=== PATIENT | female | born 1980 | race Caucasian/White ===

== ENCOUNTER 2016-07-29 12:18 | Emergency (ER) | payer MEDICAID, OTHER ==
[~2016-07-29] VITALS: Ht 160 cm; Wt 72.0 kg
[2016-07-29 12:20] VITALS: BP 176/107; PULSE 124; RESP 16; TEMP 97.9; O2SAT 100
[2016-07-29] MEDS ORDERED: SODIUM CHLOR 0.9% 1000 ML INJ 1,000 ML IV SCH (12:43)
[2016-07-29] MEDS ORDERED: AMLO5TAB2 PO (12:45)
[2016-07-29] MEDS ORDERED: SODIUM CHLORIDE 0.9% FLUSH 10 ML FLUSH IV FLUSH PRN (12:45)
[2016-07-29] MEDS ORDERED: METO50TA PO (12:45)
--- NOTE | 2016-07-29 12:46 | PD ---
HPI Chief Complaint: Abdominal Pain Time Seen by Provider: 12:46 Travel History International Travel<30 days: No Contact w/Intl Traveler<30days: No Traveled to known affect area: No History of Present Illness HPI 36-year-old female with a history of iron deficiency anemia presents to the emergency department for evaluation of lower abdominal pain, fatigue, vaginal discharge and dysuria. The patient states that 5 days ago she began to have lower abdominal and pelvic pain. States that she was seen at [facility] 3 days ago and was diagnosed with a urinary tract infection and prescribed Cipro. States she has been taking this medication without improvement of symptoms. States that yesterday she developed abnormal vaginal discharge. States that she has some mild lower back pain as well. States she has had some intermittent nausea and vomiting, last vomited yesterday. Denies fever, chills, diarrhea, constipation, hematuria, chest pain, shortness of breath, cough or cold symptoms. No other complaints. PFSH Past Medical History Hx Anticoagulant Therapy: No Anemia: Yes Cardiovascular Problems: Yes (HTN) Chemotherapy: No Cerebrovascular Accident: Yes (POSSIBLE TIA) Diabetes: No Hypertension: Yes Respiratory: No Influenza Vaccination: No ?: Not LMP: 07/21/16 : 3 Para: 1 Past Surgical History Abdominal Surgery: Yes (gastric bypass) Oral Surgery: Yes Social History Alcohol Use: No Tobacco Use: Yes Substance Use: No Allergies-Medications (Allergen,Severity, Reaction): Coded Allergies: Codeine (Verified Allergy, Intermediate, N/V, 07/29/16) Reported Meds & Prescriptions Reported Meds & Active Scripts Active Reported Adderall (Amphetamine-Dextroamphetamine) 20 Mg Tab 20 Mg PO BID Avoid late evening doses. Space doses at least 4 to 6 hours if more than once/day dosing. Klonopin (Clonazepam) 1 Mg Tab 1 Mg PO BID Metoprolol Tartrate 50 Mg Tab 50 Mg PO BID Amlodipine (Amlodipine Besylate) 5 Mg Tab 5 Mg PO DAILY Review of Systems Except as stated in HPI: all other systems reviewed are Neg Physical Exam Narrative GENERAL: Well-nourished and well-developed pleasant female patient in no acute distress who is nontoxic appearing. SKIN: Warm and dry. HEAD: Normocephalic and atraumatic. EYES: No injection, drainage, or hyphema noted. PERRLA. EOMI. ENT: No nasal drainage noted. Oropharynx is clear. NECK: Supple and the trachea is midline. CARDIOVASCULAR: Regular rate and rhythm. RESPIRATORY: Breath sounds are equal bilaterally with no accessory muscle use, wheezing, rhonchi, or crackles. GASTROINTESTINAL: Suprapubic tenderness to palpation. Negative McBurney's point. Negative Weiss's sign. No rebound tenderness or guarding. Abdomen is soft and nondistended. GENITOURINARY: Normal external genitalia without lesions or erythema. Vaginal vault with small amount of white discharge. Cervical os was closed without drainage. No cervical motion tenderness. She does have tenderness overlying the uterus. Uterus is nonenlarged. Bilateral adnexa nontender without masses. MUSCULOSKELETAL: No obvious deformities, swelling, cyanosis, or ecchymosis is present throughout the upper and lower extremities. Patient has full range of motion without any signs of neurovascular compromise. BACK: Nontender without any obvious deformities, bony point tenderness, or crepitus noted throughout the thoracic and lumbar vertebrae. NEUROLOGICAL: Awake, alert, and oriented. Normal speech and gait. Cranial nerves are grossly intact. Data Data Last Documented VS Vital Signs Date Time Temp Pulse Resp B/P Pulse Ox O2 Delivery O2 Flow Rate FiO2 07/29/16 12:53 Room Air 07/29/16 12:20 97.9 124 16 176/107 100 Orders Complete Blood Count With Diff (07/29/16 12:43) Comprehensive Metabolic Panel (07/29/16 12:43) Lipase (07/29/16 12:43) Urinalysis - C+S If Indicated (07/29/16 12:43) Iv Access Insert/Monitor (07/29/16 12:43) Ecg Monitoring (07/29/16 12:43) Oximetry (07/29/16 12:43) Sodium Chlor 0.9% 1000 Ml Inj (Ns 1000 M (07/29/16 12:43) Sodium Chloride 0.9% Flush (Ns Flush) (07/29/16 12:45) Ed Urine Pregnancytest Poc (07/29/16 12:43) Ketorolac Inj (Toradol Inj) (07/29/16 13:00) Morphine Inj (Morphine Inj) (07/29/16 13:30) Ondansetron Inj (Zofran Inj) (07/29/16 13:30) Us Pelvis Comp Supervisor Drying/Non-Preg (07/29/16 ) Gc And Chlamydia Pcr (07/29/16 13:58) Wet Prep Profile (07/29/16 13:58) Oxycodone-Acetamin 5-325 Mg (Percocet (07/29/16 15:45) Labs Laboratory Tests Test 07/29/16 07/29/16 12:50 14:02 White Blood Count 6.4 TH/MM3 Red Blood Count 4.18 MIL/MM3 Hemoglobin 9.5 GM/DL Hematocrit 29.8 % Mean Corpuscular Volume 71.3 FL Mean Corpuscular Hemoglobin 22.8 PG Mean Corpuscular Hemoglobin 32.0 % Concent Red Cell Distribution Width 17.5 % Platelet Count 393 TH/MM3 Mean Platelet Volume 8.3 FL Neutrophils (%) (Auto) 50.9 % Lymphocytes (%) (Auto) 37.2 % Monocytes (%) (Auto) 6.7 % Eosinophils (%) (Auto) 4.2 % Basophils (%) (Auto) 1.0 % Neutrophils # (Auto) 3.2 TH/MM3 Lymphocytes # (Auto) 2.4 TH/MM3 Monocytes # (Auto) 0.4 TH/MM3 Eosinophils # (Auto) 0.3 TH/MM3 Basophils # (Auto) 0.1 TH/MM3 CBC Comment DIFF FINAL Differential Comment Urine Color DARK-YELLOW Urine Turbidity CLEAR Urine pH 5.5 Urine Specific Constantia 1.020 Urine Protein TRACE mg/dL Urine Glucose (UA) NEG mg/dL Urine Ketones NEG mg/dL Urine Occult Blood NEG Urine Nitrite NEG Urine Bilirubin NEG Urine Urobilinogen LESS THAN 2.0 MG/DL Urine Leukocyte Esterase NEG Urine RBC 4 /hpf Urine WBC 3 /hpf Urine Hyaline Casts 3 /lpf Urine Mucus FEW /lpf Microscopic Urinalysis Comment CULT NOT INDICATED Sodium Level 140 MEQ/L Potassium Level 4.1 MEQ/L Chloride Level 106 MEQ/L Carbon Dioxide Level 26.7 MEQ/L Anion Gap 7 MEQ/L Blood Urea Nitrogen 21 MG/DL Creatinine 0.77 MG/DL Estimat Glomerular Filtration 85 ML/MIN Rate Random Glucose 73 MG/DL Calcium Level 8.6 MG/DL Total Bilirubin 0.4 MG/DL Aspartate Amino Transf 19 U/L (AST/SGOT) Alanine Aminotransferase 27 U/L (ALT/SGPT) Alkaline Phosphatase 56 U/L Total Protein 7.6 GM/DL Albumin 3.8 GM/DL Lipase 196 U/L Clue Cells (Wet Prep) NONE SEEN Vaginal Trichomonas (Wet Prep) NONE SEEN Vaginal Yeast (Wet Prep) NONE SEEN MDM Medical Decision Making Medical Screen Exam Complete: Yes Emergency Medical Condition: Yes Differential Diagnosis UTI versus urethritis versus cystitis versus PID versus ovarian cyst Narrative Course 36-year-old female presents to the emergency department for evaluation of lower abdominal pain with dysuria, nausea and vomiting. Patient is afebrile, vital signs are stable. She is initially tachycardic. She has suprapubic tenderness but overall abdominal examination is benign. She was seen at [facility] 3 days ago for the same complaint and was diagnosed with urinary tract infection and placed on Cipro. Her symptoms have persisted and she is now reporting vaginal discharge as well. IV access is obtained, labs were drawn and sent. Patient is placed on cardiac telemetry and pulse oximetry monitoring. Patient is administered IV Toradol, fluids, morphine and Zofran. I reviewed the records from her visit 3 days ago which shows that she did have a urinary tract infection and anemia but otherwise labs were unremarkable. She had a wet prep that was unremarkable and GC chlamydia that was negative. CBC shows anemia with a hemoglobin of 9.5, hematocrit 29.8. Patient has a history of iron deficiency anemia. CMP shows elevated BUN of 21, otherwise unremarkable. Urinalysis shows 4 red blood cells, few mucus otherwise unremarkable. Wet prep is negative. Gonorrhea and chlamydia is pending. Pelvic ultrasound shows unremarkable uterus with multiple small bilateral ovarian follicular cysts largest measuring 1.5 cm on the left and 1 cm on the right. The patient has required multiple doses of pain medication earlier in the emergency department. I discussed all findings with the patient and family. There is no sign of infection. She had a negative gonorrhea and chlamydia done at [facility] 3 days ago per her records. She has ovarian cysts on ultrasound may be causing her pain. She'll be discharged with a short prescription for pain medication and Zofran. She is advised to follow-up as an outpatient with her PCP or cheese wrapper. Patient verbalizes understanding and agreement with treatment plan. I discussed the case with my attending physician Dr. Erickson who is aware of the patients history, physical examination findings, and treatment plan. Diagnosis Primary Impression: Ovarian cyst Additional Impression: Pain, pelvic, female Referrals: Psychologist Engineering Primary Care Physician Patient Instructions: General Instructions, Ovarian Cyst (ED), Pelvic Pain (ED) Additional Instructions: Take medications as prescribed with food and a full glass of water. Do not take Percocet with alcohol or while driving. Follow-up with your Primary Care Physician. Return to the ED for any acute worsening of symptoms. Med/Other Pt SpecificInfo: Prescription(s) given Scripts Ondansetron (Zofran)4 Mg Tab4 Mg PO Q6HR PRN (NAUSEA OR VOMITING) #10 TAB Ref 0 Prov:Palmer Erickson MD 07/29/16 Oxycodone-Acetaminophen (Percocet)5-325 mg Tab1 Tab PO Q6H PRN (PAIN GREATER THAN 6) #12 TAB Ref 0 Prov:Palmer Erickson MD 07/29/16 Disposition: 01 DISCHARGE HOME Condition: Stable Heather Pedersen Jul 29, 2016 12:46
[2016-07-29] MEDS ORDERED: ADDE20 PO (12:47)
[2016-07-29] MEDS ORDERED: CLON1 PO (12:47)
[2016-07-29] MEDS ORDERED: KETOROLAC TROMETHAMINE 30 MG/ML (IVP) VIAL IV PUSH ONE (13:00)
[2016-07-29 13:11] LABS: WHITE BLOOD COUNT 6.4 TH/MM3 (4.0-11.0)
[2016-07-29 13:12] LABS: AUTOMATED NEUTROPHIL # 3.2 TH/MM3 (1.8-7.7); BASOPHIL # 0.1 TH/MM3 (0-0.2); EOSINOPHIL # 0.3 TH/MM3 (0-0.4); EOSINOPHIL % 4.2 % (0.0-4.0); HEMATOCRIT 29.8 % (35.0-46.0); HEMO FLAGS DIFF FINAL; LYMPH % 37.2 % (9.0-44.0); LYMPHOCYTE # 2.4 TH/MM3 (1.0-4.8); MEAN CELL VOLUME 71.3 FL (80.0-100.0); MEAN CORPUSCULAR HEMOGLOBIN 22.8 PG (27.0-34.0); MONO % 6.7 % (0.0-8.0); NEUT % 50.9 % (16.0-70.0); PLATELET COUNT 393 TH/MM3 (150-450); RED BLOOD COUNT 4.18 MIL/MM3 (4.00-5.30); RED CELL DISTRIBUTION WIDTH 17.5 % (11.6-17.2)
[2016-07-29 13:16] LABS: BLOOD, URINE NEG (NEG); COMMENT (UR) CULT NOT INDICATED; CULTURE IF INDICATED CULT NOT INDICATED; GLUCOSE,URINE NEG (NEG); HYALINE CAST, URINE 3 /lpf (RARE); KETONE, URINE NEG (NEG); MUCUS URINE FEW /lpf (OCC); NITRITE,URINE NEG (NEG); PH, URINE 5.5 (5.0-8.5); URINE COLOR DARK-YELLOW (YELLW/STRAW)
[2016-07-29] MEDS ORDERED: ONDANSETRON HCL 4 MG/2 ML VIAL IV PUSH ONE (13:30)
[2016-07-29] MEDS ORDERED: MORPHINE SULFATE 4 MG/ML INJ IV PUSH ONE (13:30)
[2016-07-29 13:41] LABS: ANION GAP 7 MEQ/L (5-15); AST (GOT) 19 U/L (15-37); BICARBONATE 26.7 MEQ/L (21.0-32.0); BLOOD UREA NITROGEN 21 MG/DL (7-18); CHLORIDE 106 MEQ/L (98-107); GLOMERULAR FILTRATION RATE 85 ML/MIN (>89); POTASSIUM 4.1 MEQ/L (3.5-5.1); SODIUM (NA) 140 MEQ/L (136-145)
[2016-07-29 13:44] LABS: ALKALINE PHOSPHATASE 56 U/L (45-117); ALT (GPT) 27 U/L (10-53); TOTAL BILIRUBIN ADULT 0.4 MG/DL (0.2-1.0)
--- NOTE | 2016-07-29 15:38 | RADRPT ---
EXAM DATE/TIME: 07/29/2016 14:37 [facility] COMPARISON: No previous studies available for comparison. INDICATIONS : Pelvic pain. MEDICAL HISTORY : Hypertension. Possible transient ischemic attack. Pelvic pain. SURGICAL HISTORY : Gastric bypass. Oral surgery. ENCOUNTER: Initial ACUITY: 1 week PAIN SCORE: 7/10 LOCATION: Bilateral pelvis MEASUREMENTS: UTERUS: 8.5 x 5.4 x 3.4 cm ENDOMETRIAL STRIPE: 7 mm RIGHT OVARY: 3.1 x 1.6 x 1.6 cm LEFT OVARY: 3.8 x 2.2 x 1.8 cm FINDINGS: UTERUS: The myometrium has homogeneous echotexture without mass. RIGHT OVARY: Ovary contains no mass or significant cystic lesion. LEFT OVARY: Ovary contains no mass or significant cystic lesion. MISCELLANEOUS: No free fluid. CONCLUSION: 1. Uterus unremarkable. Multiple small bilateral ovarian follicular cysts. Largest measures about 1.5 cm on the left and 1 cm on the right. Reggie Hong MD on July 29, 2016 at 15:35 Board Certified Radiologist. This report was verified electronically.
[2016-07-29] MEDS ORDERED: oxyCODONE/ACETAMINOPHEN 5 MG/325 MG TAB PO ONE (15:45)
[2016-07-29] MEDS ORDERED: ZOFR4TAB PO (15:50)
[2016-07-29] MEDS ORDERED: PERC5TAB12 PO (15:50)
[2016-07-29 16:16] VITALS: BP 181/101; TEMP 98.3
[2016-07-29 16:21] LABS: CHLAMYDIA PCR NOT DETECTED (NOT DETECT); NEISSERIA PCR NOT DETECTED (NOT DETECT)
== END 2016-07-29 16:27 | disposition home or self-care (01) ==
LOC: NEPE 12:18
DX: N83.02 Follicular cyst of left ovary (principal); N83.01 Follicular cyst of right ovary; R10.2 Pelvic and perineal pain; D64.9 Anemia, unspecified; R30.0 Dysuria; R11.2 Nausea with vomiting, unspecified; N89.8 Other specified noninflammatory disorders of vagina; M54.5 Low back pain; I10 Essential (primary) hypertension; Z72.0 Tobacco use; Z86.2 Personal history of diseases of the blood and blood-forming organs and certain disorders involving the immune mechanism; Z86.79 Personal history of other diseases of the circulatory system
CPT/HCPCS: 76856; 80053; 81001; 83690; 84703; 85025; 87210; 87491; 87591; 96361; 96374; 96375; 99285; J1885; J2270; J2405; J7030

== ENCOUNTER 2016-11-28 15:44 | Emergency (ER) | payer OTHER ==
[~2016-11-28] VITALS: Ht 160 cm; Wt 77.0 kg
[~2016-11-28 15:44] MED LIST: ADDE20 PO; AMLO5TAB2 PO; CLON1 PO; METO50TA PO; PERC5TAB12 PO; ZOFR4TAB PO
[2016-11-28 15:46] VITALS: BP 184/108; PULSE 86; RESP 15; TEMP 98.2; O2SAT 98
--- NOTE | 2016-11-28 20:40 | PD ---
HPI Chief Complaint: Manufacturing Planner Problem/Complaint Time Seen by Provider: 20:30 Travel History International Travel<30 days: No Contact w/Intl Traveler<30days: No Traveled to known affect area: No History of Present Illness HPI This is a 36-year-old female who presents for evaluation of lower abdominal pain. Symptoms started today at 1 PM after she urinated. She describes it as a pressure in the pelvic region which is constant. No obvious aggravating or relieving factors. She took some Azo which did not help. She denies dysuria, increased urinary frequency or hesitancy, nausea or vomiting, vaginal bleeding or discharge. She reports that she has a history of ovarian cysts and she is concerned that one may have ruptured. No other complaints at this time. PFSH Past Medical History Hx Anticoagulant Therapy: No Anemia: Yes Cardiovascular Problems: Yes (HTN) Chemotherapy: No Cerebrovascular Accident: Yes (POSSIBLE TIA) Diabetes: No Diminished Hearing: No Hypertension: Yes Respiratory: No Tetanus Vaccination: Unknown ?: Not LMP: week ago : 3 Para: 1 Past Surgical History Abdominal Surgery: Yes (gastric bypass) Oral Surgery: Yes Social History Alcohol Use: No Tobacco Use: Yes (socially) Substance Use: No Allergies-Medications (Allergen,Severity, Reaction): Coded Allergies: codeine (Unverified Allergy, Intermediate, N/V, 09/20/16) Reported Meds & Prescriptions Reported Meds & Active Scripts Active Flagyl (Metronidazole) 500 Mg Tab 500 Mg PO BID 7 Days Pyridium (Phenazopyridine HCl) 100 Mg Tab 100 Mg PO Q8H PRN 3 Days Macrobid (Nitrofurantoin Monohydrate Macrocrystals) 100 Mg Capsule 100 Mg PO BID 7 Days Zofran (Ondansetron HCl) 4 Mg Tab 4 Mg PO Q6HR PRN Percocet (Oxycodone-Acetaminophen) 5-325 mg Tab 1 Tab PO Q6H PRN Reported Adderall (Amphetamine-Dextroamphetamine) 20 Mg Tab 20 Mg PO BID Avoid late evening doses. Space doses at least 4 to 6 hours if more than once/day dosing. Klonopin (Clonazepam) 1 Mg Tab 1 Mg PO BID Metoprolol Tartrate 50 Mg Tab 50 Mg PO BID Amlodipine (Amlodipine Besylate) 5 Mg Tab 5 Mg PO DAILY Review of Systems Except as stated in HPI: all other systems reviewed are Neg Physical Exam Narrative Examined in the presence of a female nurse GENERAL: Well-nourished female in no acute distress SKIN: Warm and dry. HEAD: Atraumatic. Normocephalic. EYES: Pupils equal and round. No scleral icterus. No injection or drainage. ENT: No nasal bleeding or discharge. Mucous membranes pink and moist. NECK: Trachea midline. No JVD. CARDIOVASCULAR: Regular rate and rhythm. No murmur appreciated. RESPIRATORY: No accessory muscle use. Clear to auscultation. Breath sounds equal bilaterally. GASTROINTESTINAL: Abdomen soft, focal mild suprapubic tenderness without guarding. Pelvic examination reveals a small amount of yellow discharge in the vaginal canal, no cervical motion tenderness, mild right adnexal tenderness. No palpable masses. MUSCULOSKELETAL: No obvious deformities. No clubbing. No cyanosis. No edema. NEUROLOGICAL: Awake and alert. No obvious cranial nerve deficits. Motor grossly within normal limits. Normal speech. PSYCHIATRIC: Appropriate mood and affect; insight and judgment normal. Data Data Last Documented VS Vital Signs Date Time Temp Pulse Resp B/P (MAP) Pulse Ox O2 Delivery O2 Flow Rate FiO2 11/28/16 15:46 98.2 86 15 184/108 (133) 98 Orders Orders Urinalysis - C+S If Indicated (11/28/16 20:30) Ed Urine Pregnancytest Poc (11/28/16 20:30) Gc And Chlamydia Pcr (11/28/16 20:38) Wet Prep Profile (11/28/16 20:38) Us Pelvis Comp W Doppler (11/28/16 20:40) Acetamin-Codeine 300-30 Mg (Tylenol-Code (11/28/16 21:00) Ondansetron Odt (Zofran Odt) (11/28/16 21:00) Oxycodone-Acetamin 5-325 Mg (Percocet (11/28/16 21:45) Urine Culture (11/28/16 21:00) Nitrofurantoin Monohyd Macrocr (Macrobid (11/28/16 22:00) Metronidazole (Flagyl) (11/28/16 22:15) Labs Laboratory Tests Test 11/28/16 21:00 11/28/16 21:30 Urine Color DARK-ORANGE Urine Turbidity CLOUDY Urine pH 6.0 Urine Specific [place] 1.032 Urine Protein 100 mg/dL Urine Glucose (UA) NEG mg/dL Urine Ketones NEG mg/dL Urine Occult Blood MOD Urine Nitrite POS Urine Bilirubin LARGE Urine Urobilinogen 8.0 MG/DL Urine Leukocyte Esterase NEG Urine RBC /hpf Urine WBC /hpf Urine WBC Clumps FEW Urine Bacteria OCC /hpf Urine Mucus FEW /lpf Microscopic Urinalysis Comment CULTURE INDICATED Clue Cells (Wet Prep) PRESENT Vaginal Trichomonas (Wet Prep) NONE SEEN Vaginal Yeast (Wet Prep) NONE SEEN MDM Medical Decision Making Medical Screen Exam Complete: Yes Emergency Medical Condition: Yes Medical Record Reviewed: Yes Interpretation(s) CONCLUSION: Unremarkable sonographic appearance of the pelvis Differential Diagnosis Cystitis, ovarian cyst, ovarian torsion, PID, , ectopic , appendicitis Narrative Course 36-year-old female who has been expressing pelvic pain for several hours. On examination she has mild suprapubic tenderness to palpation, mild right adnexal tenderness on pelvic examination. No cervical motion tenderness. Small amount of yellow discharge in the vaginal canal. The patient reports allergies to Toradol as well as codeine however she has taken oxycodone in the past with no difficulty. She will be given a dose of Percocet and Zofran. Pelvic ultrasound reveals no acute abnormalities. The urinalysis reveals positive nitrites, innumerable WBCs, moderate blood, 100 protein, culture is pending. Empirically the patient is being treated with Macrobid and Pyridium pending culture results. Her wet prep is also positive for clue cells and she will be started on Flagyl. She is stable for discharge. Diagnosis Primary Impression: Urinary tract infection Qualified Codes: N30.01 - Acute cystitis with hematuria Additional Impression: Bacterial vaginosis Additional Instructions: Medication as prescribed. Stay well hydrated well-nourished. Follow up close with primary care physician. Return for any emergent medical conditions. Med/Other Pt SpecificInfo: Prescription(s) given Scripts Metronidazole (Flagyl) 500 Mg Tab 500 MG PO BID for Infection for 7 Days, #14 TAB 0 Refills Prov: Pipo Knight MD 11/28/16 Phenazopyridine (Pyridium) 100 Mg Tab 100 MG PO Q8H Y for DYSURIA for 3 Days, #9 TAB 0 Refills Prov: Pipo Knight MD 11/28/16 Nitrofurantoin Monohydrate Macrocrystals (Macrobid) 100 Mg Capsule 100 MG PO BID for Infection for 7 Days, #14 CAP 0 Refills Prov: Pipo Knight MD 11/28/16 Disposition: 01 DISCHARGE HOME Condition: Stable Gama Elliott Nov 28, 2016 20:40
[2016-11-28] MEDS ORDERED: ONDANSETRON ODT 4 MG TAB PO ONE (21:00)
[2016-11-28] MEDS ORDERED: ACETAMINOPHEN/CODEINE 300 MG/30 MG TAB PO ONE (21:00)
[2016-11-28 21:37] LABS: BACTERIA, URINE OCC /hpf; BILIRUBIN, URINE LARGE (NEG); BLOOD, URINE MOD (NEG); GLUCOSE,URINE NEG (NEG); KETONE, URINE NEG (NEG); MUCUS URINE FEW /lpf (OCC); NITRITE,URINE POS (NEG); URINE LEUKOCYTE ESTERASE NEG (NEG); WHITE BLOOD CELL CLUMPS FEW
[2016-11-28 21:44] LABS: URINE COLOR DARK-ORANGE (YELLW/STRAW)
[2016-11-28] MEDS ORDERED: oxyCODONE/ACETAMINOPHEN 5 MG/325 MG TAB PO ONE (21:45)
--- NOTE | 2016-11-28 21:45 | RADRPT ---
EXAM DATE/TIME: 11/28/2016 21:08 [facility] COMPARISON: No previous studies available for comparison. INDICATIONS : Pelvic pain. MEDICAL HISTORY : Hypertension. Possible transient ischemic attack. Pelvic pain. SURGICAL HISTORY : Gastric bypass. Oral surgery. ENCOUNTER: Subsequent ACUITY: 1 day PAIN SCORE: 7/10 LOCATION: Bilateral pelvis MEASUREMENTS: UTERUS: 8.2 x 4.6 x 4.6 cm ENDOMETRIAL STRIPE: 3 mm RIGHT OVARY: 3.5 x 3.1 x 2.6 cm LEFT OVARY: 2.5 x 1.5 x 1.8 cm FINDINGS: UTERUS: The myometrium has homogeneous echotexture without mass. RIGHT OVARY: Ovary contains no mass or significant cystic lesion.Intact blood flow LEFT OVARY: Ovary contains no mass or significant cystic lesion. Intact blood flow MISCELLANEOUS: No free fluid. CONCLUSION: Unremarkable sonographic appearance of the pelvis Otoniel Vallecillo MD on November 28, 2016 at 21:42 Board Certified Radiologist. This report was verified electronically.
[2016-11-28] MEDS ORDERED: MACR100C2 PO (21:58)
[2016-11-28] MEDS ORDERED: PHEN0.4T PO (21:58)
[2016-11-28] MEDS ORDERED: NITROFURANTOIN MONOHYD MACROCR 100 MG CAP PO ONE (22:00)
[2016-11-28] MEDS ORDERED: METR-1 PO (22:10)
[2016-11-28] MEDS ORDERED: metroNIDAZOLE 500 MG TAB PO ONE (22:15)
== END 2016-11-28 22:43 | disposition home or self-care (01) ==
LOC: NEPB 15:44 → NED 15:44 → NEPB 22:43
DX: N30.01 Acute cystitis with hematuria (principal); B96.20 Unspecified Escherichia coli [E. coli] as the cause of diseases classified elsewhere; N76.0 Acute vaginitis
CPT/HCPCS: 76856; 81001; 84703; 87077; 87086; 87186; 87210; 87491; 87591; 93975

== ENCOUNTER 2017-04-26 09:57 | Emergency (ER) | payer OTHER ==
[~2017-04-26] VITALS: Ht 160 cm; Wt 95.5 kg
[~2017-04-26 09:57] MED LIST changes: +MACR100C2 PO; +METR-1 PO; +PHEN0.4T PO
[2017-04-26 11:08] VITALS: BP 173/94; PULSE 72; RESP 20; TEMP 97.6; O2SAT 98
[2017-04-26] MEDS ORDERED: OXYC1TAB63 PO (11:22)
[2017-04-26 14:36] LABS: AUTOMATED NEUTROPHIL # 3.3 TH/MM3 (1.8-7.7); BASOPHIL % 0.2 % (0.0-2.0); EOSINOPHIL % 0.8 % (0.0-4.0); HEMATOCRIT 41.1 % (35.0-46.0); HEMOGLOBIN 13.8 GM/DL (11.6-15.3); LYMPH % 33.3 % (9.0-44.0); LYMPHOCYTE # 1.8 TH/MM3 (1.0-4.8); MEAN CELL VOLUME 91.5 FL (80.0-100.0); MEAN CORPUSCULAR HEMOGLOBIN 30.7 PG (27.0-34.0); MEAN CORPUSCULAR HGB CONC 33.5 % (32.0-36.0); MONO % 5.2 % (0.0-8.0); MONOCYTE # 0.3 TH/MM3 (0-0.9); NEUT % 60.5 % (16.0-70.0); PLATELET COUNT 233 TH/MM3 (150-450); RED BLOOD COUNT 4.49 MIL/MM3 (4.00-5.30); RED CELL DISTRIBUTION WIDTH 15.8 % (11.6-17.2); WHITE BLOOD COUNT 5.5 TH/MM3 (4.0-11.0)
[2017-04-26 14:45] LABS: BACTERIA, URINE MOD /hpf; BILIRUBIN, URINE NEG (NEG); BLOOD, URINE NEG (NEG); GLUCOSE,URINE NEG (NEG); KETONE, URINE NEG (NEG); MUCUS URINE MANY /lpf (OCC); NITRITE,URINE NEG (NEG); SQUAMOUS EPITHELIAL CELL URINE 16 /hpf (0-5); URINE COLOR YELLOW (YELLW/STRAW); URINE LEUKOCYTE ESTERASE SMALL (NEG)
[2017-04-26 14:55] LABS: ALBUMIN 3.6 GM/DL (3.4-5.0); ALT (GPT) 27 U/L (10-53); AST (GOT) 21 U/L (15-37); BICARBONATE 27.9 MEQ/L (21.0-32.0); BLOOD UREA NITROGEN 10 MG/DL (7-18); CALCIUM 8.4 MG/DL (8.5-10.1); CHLORIDE 110 MEQ/L (98-107); CREATININE 0.67 MG/DL (0.50-1.00); GLOMERULAR FILTRATION RATE 100 ML/MIN (>89); GLUCOSE,RANDOM 80 MG/DL (74-106); SODIUM (NA) 144 MEQ/L (136-145)
[2017-04-26 15:05] LABS: ACETAMINOPHEN LESS THAN 2.0 MCG/ML (10.0-30.0); ALKALINE PHOSPHATASE 47 U/L (45-117); TOTAL BILIRUBIN ADULT 0.6 MG/DL (0.2-1.0); TOTAL PROTEIN 6.9 GM/DL (6.4-8.2)
--- NOTE | 2017-04-26 15:38 | PD ---
History of Present Illness Chief Complaint: Adjustment disorder Time Seen by Provider: 15:20 Travel History International Travel<30 Days: No Contact w/Intl Traveler<30days: No Known affected area: No Legal Status Legal Status: Voluntary History of Present Illness: This is a 36-year-old single, white female who presents voluntarily to the ED stating that she had a disagreement with her mother. Patient denies any history of mental illness and she has never been seen at this facility and not capacity. The medical nurse practitioner came over to screen patient and reported that the patient became irate when she was denied IV pain medication. Patient stating to the medical provider that she wants to leave AMA. I saw this patient briefly in her room with viviana Morataya present. When asked why she was here she responded "I told my mom I hated her and she called the ( expletive) hand laster they brought me here". Patient denies a psych history although , she does state that she was diagnosed with PTSD several years ago and reports that she gets Klonopin from her primary care physician. She states that she has had a pretty Jason attempt but is unable to tell me when. The patient is alert and oriented 4. Her speech is clear, and organized. Her mood is angry and her affect is angry. Patient becomes extremely agitated stating that she "has to receive pain medication through her IV". Patient denies having any suicidal ideation, homicidal ideation, visual or auditory hallucinations. I can elicit no delusional material. Her anger and irritation at not getting the medication she desires seems more in line with the cluster B personality trait. Throughout our interview her manner toward staff was demeaning. She states that she would like to leave AMA. She additionally states, "I want to go to the hospital is going to treat me". Patient seems much more concerned about pain management appears to be med seeking. Patient signed out AMA. PFSH Past Medical History Hx Anticoagulant Therapy: No Anemia: Yes Cardiovascular Problems: Yes (HTN) Chemotherapy: No Cerebrovascular Accident: Yes (POSSIBLE TIA) Diabetes: No Diminished Hearing: No Gastrointestinal Disorders: Yes Hypertension: Yes Respiratory: No Integumentary: Yes (Per pt.) Tetanus Vaccination: Unknown ?: Unknown LMP: 04/15/17 per pt. : 3 Para: 1 Miscarriage: 0 : 2 Past Surgical History Abdominal Surgery: Yes (gastric bypass) Section: Yes (x1) Oral Surgery: Yes Psychiatric History Psychiatric History Hx Psychiatric Treatment: Per pt, she has been treated in the past. States that she has seen a - who her mother sees. Staets that she has seen a . States has seen a Rowdy Peng? History of Inpatient Treatment: No Social History Hx Alcohol Use: Yes (Every night - "a few cups of Captain" per pt. ) Hx Tobacco Use: Yes (1PPD) Hx Substance Use: No (Patient denies any Hx of substance use/abuse.) Substance Use Type: Alcohol Hx of Substance Use Treatment: No Allergies-Medications (Allergen,Severity, Reaction): Coded Allergies: codeine (Unverified Allergy, Intermediate, N/V, 09/20/16) ketorolac (Verified Allergy, Unknown, 04/26/17) Per pt. Stated cannot take it because of her gastric bypass and stated that it causes her to have pain. Reported Meds & Prescriptions Reported Meds & Active Scripts Active Reported Oxycodone-Acetaminophen 5-325 (Oxycodone HCl/Acetaminophen) 5 Mg-325 Mg Tablet 1 Tab PO TID Adderall (Amphetamine-Dextroamphetamine) 20 Mg Tab 20 Mg PO DAILY Avoid late evening doses. Space doses at least 4 to 6 hours if more than once/day dosing. Klonopin (Clonazepam) 1 Mg Tab 1 Mg PO BID [facility] Medical Decision Making Assessment/Plan Patient opted to leave AGAINST MEDICAL ADVICE prior to a full psychiatric screening. She became agitated and irate while seeing the medical provider. Per the medical provider she was demanding IV pain medication and when told that she would not be receiving that at this time she demanded to be discharged. Patient denied suicidal or homicidal ideation, auditory or visual hallucinations. Can elicit no delusional material. At this point she does not meet Sousa act criteria and therefore, will be allowed to sign out AGAINST MEDICAL ADVICE. Orders Orders Diet Regular Basic (04/26/17 Lunch) Complete Blood Count With Diff (04/26/17 13:38) Comprehensive Metabolic Panel (04/26/17 13:38) Thyroid Stimulating Hormone (04/26/17 13:38) Urinalysis - C+S If Indicated (04/26/17 13:38) Psych Screen (04/26/17 13:38) Drug Screen, Random Urine (04/26/17 13:38) Alcohol (Ethanol) (04/26/17 13:38) Salicylates (Aspirin) (04/26/17 13:38) Tylenol (Acetaminophen) (04/26/17 13:38) Ed Urine Pregnancytest Poc (04/26/17 13:52) Lipase (04/26/17 13:52) Gc And Chlamydia Pcr (04/26/17 14:16) Urine Culture (04/26/17 14:08) Results Vital Signs Date Time Temp Pulse Resp B/P (MAP) Pulse Ox O2 Delivery O2 Flow Rate FiO2 04/26/17 11:08 97.6 72 20 173/94 (120) 98 Laboratory Tests Test 04/26/17 14:02 04/26/17 14:08 White Blood Count 5.5 Red Blood Count 4.49 Hemoglobin 13.8 Hematocrit 41.1 Mean Corpuscular Volume 91.5 Mean Corpuscular Hemoglobin 30.7 Mean Corpuscular Hemoglobin Concent 33.5 Red Cell Distribution Width 15.8 Platelet Count 233 Mean Platelet Volume 8.0 Neutrophils (%) (Auto) 60.5 Lymphocytes (%) (Auto) 33.3 Monocytes (%) (Auto) 5.2 Eosinophils (%) (Auto) 0.8 Basophils (%) (Auto) 0.2 Neutrophils # (Auto) 3.3 Lymphocytes # (Auto) 1.8 Monocytes # (Auto) 0.3 Eosinophils # (Auto) 0.0 Basophils # (Auto) 0.0 CBC Comment DIFF FINAL Differential Comment Blood Urea Nitrogen 10 Creatinine 0.67 Random Glucose 80 Total Protein 6.9 Albumin 3.6 Calcium Level 8.4 Alkaline Phosphatase 47 Aspartate Amino Transf (AST/SGOT) 21 Alanine Aminotransferase (ALT/SGPT) 27 Total Bilirubin 0.6 Sodium Level 144 Potassium Level 4.0 Chloride Level 110 Carbon Dioxide Level 27.9 Anion Gap 6 Estimat Glomerular Filtration Rate 100 Lipase 222 Thyroid Stimulating Hormone 3rd Gen 0.093 Salicylates Level 2.0 Acetaminophen Level LESS THAN 2.0 Ethyl Alcohol Level LESS THAN 3 Urine Color YELLOW Urine Turbidity HAZY Urine pH 7.0 Urine Specific [place] 1.030 Urine Protein 30 Urine Glucose (UA) NEG Urine Ketones NEG Urine Occult Blood NEG Urine Nitrite NEG Urine Bilirubin NEG Urine Urobilinogen 2.0 Urine Leukocyte Esterase SMALL Urine RBC 3 Urine WBC 1 Urine Squamous Epithelial Cells 16 Urine Bacteria MOD Urine Mucus MANY Microscopic Urinalysis Comment CULTURE INDICATED Urine Opiates Screen NEG Urine Barbiturates Screen NEG Urine Amphetamines Screen NEG Urine Benzodiazepines Screen POS Urine Cocaine Screen NEG Urine Cannabinoids Screen NEG Date/Time Source Procedure Growth Status 04/26/17 14:08 Urine Random Urine Urine Culture Pending Received Diagnosis Primary Impression: Left against medical advice Joycelyn Daly Apr 26, 2017 15:38
--- NOTE | 2017-04-26 15:39 | PD ---
HPI Chief Complaint: Psychiatric Symptoms Time Seen by Provider: 14:16 Travel History International Travel<30 days: No Contact w/Intl Traveler<30days: No Traveled to known affect area: No History of Present Illness HPI According to the nurse the patient was brought in by law enforcement after getting in a fight with her mom and her mom called the police. She checked into the emergency department voluntarily for psychiatric evaluation. She denies suicidal or homicidal ideations. She reports history of suicidal attempt by taking pills. Denies auditory or visual hallucinations. Reports low back pain that radiates to both of her legs, left worse than right. Has history of sciatica. Denies injury. Denies IV drug use or cancer. Denies encopresis, incontinence, saddle anesthesias. Denies paresthesias, loss of sensation, decreased range of motion, decreased strength to bilateral lower extremities. Denies fever, vomiting, abdominal pain. Is also complaining of a sore to her upper lip and a rash in between her first and second fingers that have been there for a few months. She says they are itchy at times. Reports social EtOH. Denies illicit drug use. Denies dysuria. Says she was recently treated with doxycycline and Flagyl for pelvic inflammatory disease and she finished her antibiotics a few days ago. Says she thinks she still has PID. Reports abnormal vaginal discharge. Reports vaginal odor. Has history of gastric bypass and anemia. Sees a acid conditioner Dr. Padilla. Her primary care provider is Dr. Cunha in [place]. Does not see a psychiatrist. Has not taken any medications or try any treatments to alleviate her symptoms. Unknown duration. Unknown onset. No known relieving or aggravating factors. Has no other medical complaints. No other modifying factors or associated signs and symptoms. PFSH Past Medical History Hx Anticoagulant Therapy: No Anemia: Yes Cardiovascular Problems: Yes (HTN) Chemotherapy: No Cerebrovascular Accident: Yes (POSSIBLE TIA) Diabetes: No Diminished Hearing: No Gastrointestinal Disorders: Yes Hypertension: Yes Respiratory: No Integumentary: Yes (Per pt.) Tetanus Vaccination: Unknown ?: Unknown LMP: 04/15/17 per pt. : 3 Para: 1 Miscarriage: 0 : 2 Past Surgical History Abdominal Surgery: Yes (gastric bypass) Section: Yes (x1) Oral Surgery: Yes Social History Alcohol Use: Yes (Every night - "a few cups of Captain" per pt. ) Tobacco Use: Yes (1PPD) Substance Use: No (Patient denies any Hx of substance use/abuse.) Allergies-Medications (Allergen,Severity, Reaction): Coded Allergies: codeine (Unverified Allergy, Intermediate, N/V, 09/20/16) ketorolac (Verified Allergy, Unknown, 04/26/17) Per pt. Stated cannot take it because of her gastric bypass and stated that it causes her to have pain. Reported Meds & Prescriptions Reported Meds & Active Scripts Active Reported Oxycodone-Acetaminophen 5-325 (Oxycodone HCl/Acetaminophen) 5 Mg-325 Mg Tablet 1 Tab PO TID Adderall (Amphetamine-Dextroamphetamine) 20 Mg Tab 20 Mg PO DAILY Avoid late evening doses. Space doses at least 4 to 6 hours if more than once/day dosing. Klonopin (Clonazepam) 1 Mg Tab 1 Mg PO BID Review of Systems Except as stated in HPI: all other systems reviewed are Neg Physical Exam Narrative GENERAL: Well-nourished, well-developed female patient, in no acute distress SKIN: Warm and dry. Sore noted to left upper lip that appears to be consistent with a cold sore. Redness noted in between bilateral first and second digit; no signs of cellulitis, drainage, no open sores, nonraised. HEAD: Atraumatic. Normocephalic. EYES: Pupils equal and round. ENT: Mucosa pink and moist. NECK: Supple. Trachea midline. CARDIOVASCULAR: Regular rate and rhythm. No murmur appreciated. RESPIRATORY: No accessory muscle use. Clear to auscultation. Breath sounds equal bilaterally. GASTROINTESTINAL: Abdomen soft, non-tender, nondistended. Hepatic and splenic margins not palpable. Bowel sounds are active 4 quadrants. MUSCULOSKELETAL: Bilateral lower extremities supple and non-tense with 2+ pedal pulses and sensory intact; with full range of motion and 5/5 strength. 2 + DTRs bilaterally. Active dorsiflexion and extension of bilateral feet. Left straight leg raise is positive for low back pain. Ambulatory in room with normal gait. Sitting up in bed at 90. No obvious deformities. No clubbing. No cyanosis. No edema. BACK: No CVA tenderness. No midline point tenderness on palpation of the lumbar spine. Tenderness on palpation of left lumbar iliosacral area. No obvious deformities. NEUROLOGICAL: Awake and alert. Oriented 3. No obvious cranial nerve deficits. Motor grossly within normal limits. Normal speech. Moves all extremities. 5/5 strength to all extremities. PSYCHIATRIC: No delusional thought processes. No hallucinations. Data Data Last Documented VS Vital Signs Date Time Temp Pulse Resp B/P (MAP) Pulse Ox O2 Delivery O2 Flow Rate FiO2 04/26/17 11:08 97.6 72 20 173/94 (120) 98 Orders Orders Diet Regular Basic (04/26/17 Lunch) Complete Blood Count With Diff (04/26/17 13:38) Comprehensive Metabolic Panel (04/26/17 13:38) Thyroid Stimulating Hormone (04/26/17 13:38) Urinalysis - C+S If Indicated (04/26/17 13:38) Psych Screen (04/26/17 13:38) Drug Screen, Random Urine (04/26/17 13:38) Alcohol (Ethanol) (04/26/17 13:38) Salicylates (Aspirin) (04/26/17 13:38) Tylenol (Acetaminophen) (04/26/17 13:38) Ed Urine Pregnancytest Poc (04/26/17 13:52) Lipase (04/26/17 13:52) Gc And Chlamydia Pcr (04/26/17 14:16) Urine Culture (04/26/17 14:08) Labs Laboratory Tests Test 04/26/17 14:02 04/26/17 14:08 White Blood Count 5.5 TH/MM3 Red Blood Count 4.49 MIL/MM3 Hemoglobin 13.8 GM/DL Hematocrit 41.1 % Mean Corpuscular Volume 91.5 FL Mean Corpuscular Hemoglobin 30.7 PG Mean Corpuscular Hemoglobin Concent 33.5 % Red Cell Distribution Width 15.8 % Platelet Count 233 TH/MM3 Mean Platelet Volume 8.0 FL Neutrophils (%) (Auto) 60.5 % Lymphocytes (%) (Auto) 33.3 % Monocytes (%) (Auto) 5.2 % Eosinophils (%) (Auto) 0.8 % Basophils (%) (Auto) 0.2 % Neutrophils # (Auto) 3.3 TH/MM3 Lymphocytes # (Auto) 1.8 TH/MM3 Monocytes # (Auto) 0.3 TH/MM3 Eosinophils # (Auto) 0.0 TH/MM3 Basophils # (Auto) 0.0 TH/MM3 CBC Comment DIFF FINAL Differential Comment Blood Urea Nitrogen 10 MG/DL Creatinine 0.67 MG/DL Random Glucose 80 MG/DL Total Protein 6.9 GM/DL Albumin 3.6 GM/DL Calcium Level 8.4 MG/DL Alkaline Phosphatase 47 U/L Aspartate Amino Transf (AST/SGOT) 21 U/L Alanine Aminotransferase (ALT/SGPT) 27 U/L Total Bilirubin 0.6 MG/DL Sodium Level 144 MEQ/L Potassium Level 4.0 MEQ/L Chloride Level 110 MEQ/L Carbon Dioxide Level 27.9 MEQ/L Anion Gap 6 MEQ/L Estimat Glomerular Filtration Rate 100 ML/MIN Lipase 222 U/L Thyroid Stimulating Hormone 3rd Gen 0.093 uIU/ML Salicylates Level 2.0 MG/DL Acetaminophen Level LESS THAN 2.0 MCG/ML Ethyl Alcohol Level LESS THAN 3 MG/DL Urine Color YELLOW Urine Turbidity HAZY Urine pH 7.0 Urine Specific [place] 1.030 Urine Protein 30 mg/dL Urine Glucose (UA) NEG mg/dL Urine Ketones NEG mg/dL Urine Occult Blood NEG Urine Nitrite NEG Urine Bilirubin NEG Urine Urobilinogen 2.0 MG/DL Urine Leukocyte Esterase SMALL Urine RBC 3 /hpf Urine WBC 1 /hpf Urine Squamous Epithelial Cells 16 /hpf Urine Bacteria MOD /hpf Urine Mucus MANY /lpf Microscopic Urinalysis Comment CULTURE INDICATED Urine Opiates Screen NEG Urine Barbiturates Screen NEG Urine Amphetamines Screen NEG Urine Benzodiazepines Screen POS Urine Cocaine Screen NEG Urine Cannabinoids Screen NEG MDM Medical Decision Making Medical Screen Exam Complete: Yes Emergency Medical Condition: Yes Medical Record Reviewed: Yes Differential Diagnosis Medical clearance for psychiatric evaluation, sciatica, acute exacerbation of chronic low back pain, UTI, pyelonephritis, PID Narrative Course 36-year-old female was brought in by police department for voluntary psych evaluation. Apparently she got in a fight with her mom and she called the police. Patient denies suicidal or homicidal ideations. The patient was screened by DIMITRI Goss in psychiatry and in discussion with the COURT INTERPRETER we agreed the patient does not meet Sousa act criteria. The patient is not a threat to herself or others. The patient is requesting IV medications for her back pain. I offered the patient Tylenol or ibuprofen and she says that she cannot take oral medication secondary to her gastric bypass and she wants IV medications. She is allergic to Toradol. The patient became agitated and said that she would find better care at [facility] and wants to leave. AMA: The risks of leaving against medical advice without further evaluation treatment were discussed with the patient. These risks include cardiac dysfunction, cardiac dysrhythmia, possible heart attack, possible stroke or . The patient indicated understanding of these risks and appeared to have the capacity to make this decision. Diagnosis Primary Impression: Left against medical advice Disposition: 07 AGAINST MEDICAL ADVICE Heather Clemons Apr 26, 2017 15:39
== END 2017-04-26 16:30 | disposition left against medical advice (07) ==
LOC: NEPJ 09:57
DX: F43.20 Adjustment disorder, unspecified (principal); M54.5 Low back pain; R82.71 Bacteriuria; N89.8 Other specified noninflammatory disorders of vagina; R21 Rash and other nonspecific skin eruption; F43.10 Post-traumatic stress disorder, unspecified; I10 Essential (primary) hypertension; F17.200 Nicotine dependence, unspecified, uncomplicated; Z53.20 Procedure and treatment not carried out because of patient's decision for unspecified reasons
CPT/HCPCS: 80053; 80307; 81001; 83690; 84443; 85025; 87086; 87491; 87591; 99283